=== PATIENT | female | born 1945 | race Caucasian/White ===

== ENCOUNTER 2018-10-14 11:51 | Inpatient (IN) | payer BC, MEDICARE, OTHER ==
[2018-10-14 14:47] LABS: ADD MAN DIFF? NO
[2018-10-14 14:49] LABS: WHITE BLOOD COUNT 5.5 10^3/ul (4.8-10.8)
[2018-10-14 14:49] LABS: ABNORMAL IP MESSAGE 1; BASOPHILS % 0.5 % (0.0-2.0); HEMATOCRIT 19.9 % (37.0-47.0); LYMPHOCYTES # 1.1 10^3/ul (0.8-2.9); LYMPHOCYTES % 19.5 % (15.0-51.0); MEAN CORPUSCULAR HEMOGLOBIN 18.1 pg (29.0-33.0); MEAN CORPUSCULAR HGB CONC 27.1 g/dl (32.0-37.0); MEAN CORPUSCULAR VOLUME 66.8 fl (82.0-101.0); MEAN PLATELET VOLUME 9.3 fl (7.4-10.4); MONOCYTE # 0.3 10^3/ul (0.3-0.9); MONOCYTES % 4.9 % (0.0-11.0); NEUTROPHIL # 4.1 10^3/ul (1.6-7.5); NEUTROPHILS % 74.4 % (39.0-77.0); PLATELET COUNT 275 10^3/UL (140-415); POSITIVE DIFF @See below; RED BLOOD COUNT 2.98 10^6/ul (4.20-5.40); RED CELL DISTRIBUTION WIDTH 19.9 % (11.5-14.5)
[2018-10-14 14:53] LABS: HEMOGLOBIN 5.4 g/dl (12.0-16.0); PATH REVIEW? YES
[2018-10-14 15:10] LABS: ALANINE AMINOTRANSFERASE 23 IU/L (13-69); ALBUMIN 3.9 g/dl (3.3-4.9); ALBUMIN/GLOBULIN RATIO 1.56; ALKALINE PHOSPHATASE 56 IU/L (42-121); ANION GAP 14 (5-13); ASPARTATE AMINO TRANSFERASE 24 IU/L (15-46); BILIRUBIN,INDIRECT 0.5 mg/dl (0-1.1); BILIRUBIN,TOTAL 0.5 mg/dl (0.2-1.3); BLOOD UREA NITROGEN 23 mg/dl (7-20); CALCIUM 9.6 mg/dl (8.4-10.2); CARBON DIOXIDE 22 mmol/L (21-31); CHLORIDE 102 mmol/L (97-110); CREATININE 1.08 mg/dl (0.44-1.00); GLUCOSE 151 mg/dl (70-220); POTASSIUM 4.4 mmol/L (3.5-5.1); SODIUM 138 mmol/L (135-144); TOTAL PROTEIN 6.4 g/dl (6.1-8.1)
[2018-10-14 15:17] LABS: B-TYPE NATRIURETIC PEPTIDE 1300 PG/ML (0-125)
[2018-10-14 16:00] LABS: FERRITIN 5.1 ng/ml (11.1-264.0)
[2018-10-14 16:15] LABS: IRON 23 ug/dl (35-150)
[2018-10-14 16:24] LABS: % IRON SATURATION 5 % SAT (22-52); TOTAL IRON BINDING CAPACITY 481 ug/dl (241-421)
[2018-10-14 17:56] LABS: ADD UMIC YES; UR ASCORBIC ACID 20 mg/dL (NEGATIVE); UR BACTERIA FEW /HPF (NONE SEEN); UR BILIRUBIN (Dip) NEGATIVE (NEGATIVE); UR BLOOD (Dip) NEGATIVE (NEGATIVE); UR CLARITY CLEAR (CLEAR); UR COLOR AMBER (YELLOW); UR GLUCOSE (Dip) NEGATIVE (NEGATIVE); UR KETONES (Dip) NEGATIVE (NEGATIVE); UR LEUKOCYTE ESTERASE (Dip) TRACE Leu/ul (NEGATIVE); UR MUCUS FEW /HPF (NONE SEEN); UR NITRITE (Dip) NEGATIVE (NEGATIVE); UR RBC 1 /HPF (0-5); UR SPECIFIC GRAVITY (Dip) 1.028 (1.003-1.030); UR SQUAMOUS EPITHELIAL CELL FEW /HPF (FEW); UR TOTAL PROTEIN (Dip) 1+ mg/dl (NEGATIVE); UR UROBILINOGEN (Dip) 1+ mg/dL (NEGATIVE); UR WBC 11 /HPF (0-5)
[2018-10-14] MEDS ORDERED: NACL 0.9% 3 ML SYG IV (18:00)
[2018-10-14] MEDS ORDERED: NABUMETONE 500 MG TAB PO (18:00)
[2018-10-14] MEDS ORDERED: ACETAMINOPHEN 325 MG TAB PO (18:00)
[2018-10-14] MEDS ORDERED: MAGNESIUM HYDROXIDE 30ML CUP PO (18:00)
[2018-10-14] MEDS ORDERED: ONDANSETRON 4 MG TAB PO (18:00)
[2018-10-14] MEDS: INSULIN ASPART [NOVOLOG] 3 ML PEN SC ×2 (18:00→21:00)
[2018-10-14] MEDS ORDERED: ZOLPIDEM 5 MG TAB PO (18:00)
[2018-10-14] MEDS: metFORMIN (XR) 500 MG TAB PO (18:04)
[2018-10-14 18:13] LABS: ANISOCYTOSIS 3+ (0-0); BAND NEUTROPHILS #M 0.1 10^3/ul (0.0-0.6); BAND NEUTROPHILS % (M) 3 % (0-4); BASOPHILS % (M) 1 % (0-2); EOSINOPHILS % (M) 6 % (0-7); HYPOCHROMASIA 2+ (0-0); LYMPHOCYTES #M 0.7 10^3/ul (0.8-2.9); LYMPHOCYTES % (M) 13 % (15-51); MICROCYTOSIS 3+ (0-0); MONOCYTE #M 0.3 10^3/ul (0.3-0.9); MONOCYTES % (M) 7 % (0-11); OVALOCYTES 1+ (0-0); PLATELET ESTIMATE NORMAL; POIKILOCYTOSIS 1+ (0-0); POLYCHROMASIA 2+ (0-0); SEG NEUT #M 3.9 10^3/ul (1.6-7.5); SEGMENTED NEUTROPHILS (M) % 70 % (39-77); SMUDGE%M 1 % (0-0)
[2018-10-14] MEDS ORDERED: DEXTROSE 50% 50 ML SYRINGE IV ×2 (19:00)
[2018-10-14] MEDS ORDERED: GLUCOSE GEL 15 GRAM TUBE BUCCAL (19:00)
[2018-10-14] MEDS ORDERED: GLUCAGON 1 MG INJ IM (19:00)
[2018-10-14] MEDS ORDERED: GLUCOSE GEL 15 GRAM TUBE PO ×2 (19:00)
[2018-10-14] MEDS: ACCU-CHEK XX ×2 (20:00→21:00)
[2018-10-14] MEDS: SOD FERRIC GLUC COMPLX 125 MG in SOD CHLORIDE 0.9% 100 ML IVPB (20:41)
[2018-10-14] MEDS: RANOLAZINE (SR) 500 MG TAB PO (22:21)
[2018-10-14] MEDS: ISOSORBIDE MONONITRATE(SR)60 MG TAB PO (22:22)
[2018-10-14] MEDS: METOPROLOL 100 MG TAB PO (22:23)
[2018-10-14] MEDS: ATORVASTATIN 10 MG TAB PO (22:28)
[2018-10-15] MEDS: ACCU-CHEK XX ×8 (01:16→21:09)
[2018-10-15 05:39] LABS: ADD MAN DIFF? NO
[2018-10-15 05:43] LABS: ABNORMAL IP MESSAGE 1; BASOPHILS % 0.9 % (0.0-2.0); HEMATOCRIT 23.3 % (37.0-47.0); LYMPHOCYTES # 1.1 10^3/ul (0.8-2.9); LYMPHOCYTES % 23.6 % (15.0-51.0); MEAN CORPUSCULAR HEMOGLOBIN 20.8 pg (29.0-33.0); MEAN CORPUSCULAR HGB CONC 29.2 g/dl (32.0-37.0); MEAN CORPUSCULAR VOLUME 71.3 fl (82.0-101.0); MEAN PLATELET VOLUME 9.6 fl (7.4-10.4); MONOCYTE # 0.3 10^3/ul (0.3-0.9); MONOCYTES % 6.4 % (0.0-11.0); NEUTROPHIL # 3.2 10^3/ul (1.6-7.5); NEUTROPHILS % 68.7 % (39.0-77.0); NUCLEATED RED BLOOD CELLS% 0.6 /100WBC (0.0-0.0); PLATELET COUNT 245 10^3/UL (140-415); RED BLOOD COUNT 3.27 10^6/ul (4.20-5.40); RED CELL DISTRIBUTION WIDTH 21.3 % (11.5-14.5)
[2018-10-15 05:43] LABS: WHITE BLOOD COUNT 4.7 10^3/ul (4.8-10.8)
[2018-10-15 06:06] LABS: CHOLESTEROL 84 mg/dl (100-200)
[2018-10-15 06:06] LABS: CHOL/HDL RATIO 2.8 RATIO; HDL CHOLESTEROL 29 mg/dl (33-92); LDL CHOLESTEROL,CALCULATED 24 mg/dl; TRIGLYCERIDES 157 mg/dl (0-149)
[2018-10-15 06:11] LABS: HEMOGLOBIN A1C 7.3 % (0-5.9)
[2018-10-15 06:28] LABS: ANION GAP 7 (5-13); BLOOD UREA NITROGEN 22 mg/dl (7-20); CALCIUM 9.5 mg/dl (8.4-10.2); CARBON DIOXIDE 25 mmol/L (21-31); CHLORIDE 104 mmol/L (97-110); CREATININE 1.14 mg/dl (0.44-1.00); GLUCOSE 85 mg/dl (70-220); MAGNESIUM 1.9 mg/dl (1.7-2.5); POTASSIUM 4.2 mmol/L (3.5-5.1); SODIUM 136 mmol/L (135-144); URIC ACID 4.4 mg/dl (3.1-7.9)
[2018-10-15 06:39] LABS: HEMOGLOBIN 6.8 g/dl (12.0-16.0); POSITIVE DIFF @See below
[2018-10-15] MEDS: PANTOPRAZOLE 40 MG INJ IV (06:49)
[2018-10-15] MEDS: REPAGLINIDE 1 MG TAB PO ×3 (07:00→17:14)
[2018-10-15] MEDS: LEVOTHYROXINE 50 MCG TAB PO (07:00)
[2018-10-15] MEDS: LACTATED RINGER'S 1,000 ML IV (07:30)
[2018-10-15] MEDS: metFORMIN (XR) 500 MG TAB PO ×2 (08:00→18:37)
[2018-10-15 08:04] LABS: IMMEDIATE SPIN CROSSMATCH 1 3
[2018-10-15] MEDS: INSULIN ASPART [NOVOLOG] 3 ML PEN SC ×4 (08:18→21:00)
[2018-10-15] MEDS: LOSARTAN 50 MG TAB PO (09:00)
[2018-10-15] MEDS: ALLOPURINOL 300 MG TAB PO (09:00)
[2018-10-15] MEDS: CHLORTHALIDONE 25 MG TAB PO (09:00)
[2018-10-15] MEDS: RANOLAZINE (SR) 500 MG TAB PO ×2 (09:00→20:58)
[2018-10-15] MEDS: ISOSORBIDE MONONITRATE(SR)60 MG TAB PO ×2 (09:00→20:59)
[2018-10-15] MEDS: METOPROLOL 100 MG TAB PO ×2 (09:00→20:59)
[2018-10-15] MEDS: INSULIN GLARGINE [LANTus] (100 UNITS/ML) SYG SC (09:12)
[2018-10-15 11:32] LABS: TRANSFERRIN 387 mg/dL (188-341)
[2018-10-15] MEDS: ETOMIDATE 20 MG INJ (12:25)
[2018-10-15] MEDS: PROPOFOL 20 ML (12:25)
[2018-10-15] MEDS: LIDOCAINE 100 MG SYRINGE (12:37)
[2018-10-15] MEDS ORDERED: ONDANSETRON 4 MG INJ (13:19)
[2018-10-15] MEDS: ONDANSETRON 4 MG INJ IV (13:23)
[2018-10-15] MEDS: SUCRALFATE 1 GM TAB PO ×2 (17:03→21:00)
[2018-10-15] MEDS: SOD FERRIC GLUC COMPLX 125 MG in SOD CHLORIDE 0.9% 100 ML IVPB (17:21)
[2018-10-15] MEDS: FERROUS FUMARATE (SR) TAB PO (20:57)
[2018-10-15] MEDS: ATORVASTATIN 10 MG TAB PO (20:58)
[2018-10-15] MEDS: ASCORBIC ACID 500 MG TAB PO (20:58)
[2018-10-16] MEDS: ACCU-CHEK XX ×8 (02:00→21:00)
[2018-10-16 06:01] LABS: ABNORMAL IP MESSAGE 1; HEMATOCRIT 28.5 % (37.0-47.0); HEMOGLOBIN 8.4 g/dl (12.0-16.0); MEAN CORPUSCULAR HGB CONC 29.5 g/dl (32.0-37.0); MEAN CORPUSCULAR VOLUME 74.6 fl (82.0-101.0); MEAN PLATELET VOLUME 9.6 fl (7.4-10.4); NUCLEATED RED BLOOD CELLS% 0.6 /100WBC (0.0-0.0); PLATELET COUNT 270 10^3/UL (140-415); RED BLOOD COUNT 3.82 10^6/ul (4.20-5.40); RED CELL DISTRIBUTION WIDTH 23.1 % (11.5-14.5)
[2018-10-16 06:19] LABS: POSITIVE DIFF @See below
[2018-10-16 06:21] LABS: ADD MAN DIFF? NO
[2018-10-16 06:26] LABS: ANION GAP 8 (5-13); BLOOD UREA NITROGEN 19 mg/dl (7-20); CALCIUM 9.7 mg/dl (8.4-10.2); CARBON DIOXIDE 27 mmol/L (21-31); CHLORIDE 107 mmol/L (97-110); CREATININE 1.06 mg/dl (0.44-1.00); GLUCOSE 106 mg/dl (70-220); POTASSIUM 4.3 mmol/L (3.5-5.1); SODIUM 142 mmol/L (135-144)
[2018-10-16] MEDS: PANTOPRAZOLE 40 MG INJ IV (06:58)
[2018-10-16] MEDS: LEVOTHYROXINE 50 MCG TAB PO (06:58)
[2018-10-16] MEDS: INSULIN ASPART [NOVOLOG] 3 ML PEN SC ×4 (08:00→21:00)
[2018-10-16] MEDS: REPAGLINIDE 1 MG TAB PO ×3 (08:28→17:33)
[2018-10-16] MEDS: metFORMIN (XR) 500 MG TAB PO ×2 (08:29→17:36)
[2018-10-16] MEDS: CHLORTHALIDONE 25 MG TAB PO (08:30)
[2018-10-16] MEDS: RANOLAZINE (SR) 500 MG TAB PO ×2 (08:31→20:57)
[2018-10-16] MEDS: ISOSORBIDE MONONITRATE(SR)60 MG TAB PO ×2 (08:31→21:07)
[2018-10-16] MEDS: LOSARTAN 50 MG TAB PO (08:31)
[2018-10-16] MEDS: ASCORBIC ACID 500 MG TAB PO ×2 (08:31→20:57)
[2018-10-16] MEDS: FERROUS FUMARATE (SR) TAB PO ×2 (08:32→20:57)
[2018-10-16] MEDS: SUCRALFATE 1 GM TAB PO ×4 (08:32→20:57)
[2018-10-16] MEDS: ALLOPURINOL 300 MG TAB PO (08:32)
[2018-10-16] MEDS: METOPROLOL 100 MG TAB PO ×2 (08:32→21:07)
[2018-10-16] MEDS: INSULIN GLARGINE [LANTus] (100 UNITS/ML) SYG SC (11:00)
[2018-10-16] MEDS: SOD FERRIC GLUC COMPLX 125 MG in SOD CHLORIDE 0.9% 100 ML IVPB (17:33)
[2018-10-16] MEDS: ATORVASTATIN 10 MG TAB PO (20:56)
[2018-10-17] MEDS: ACCU-CHEK XX ×6 (02:00→21:00)
[2018-10-17] MEDS: PANTOPRAZOLE 40 MG INJ IV (05:41)
[2018-10-17] MEDS: LEVOTHYROXINE 50 MCG TAB PO (05:41)
[2018-10-17 05:49] LABS: ADD MAN DIFF? NO
[2018-10-17 05:56] LABS: WHITE BLOOD COUNT 5.4 10^3/ul (4.8-10.8)
[2018-10-17 05:56] LABS: ABNORMAL IP MESSAGE 1; BASOPHILS % 0.7 % (0.0-2.0); HEMOGLOBIN 8.7 g/dl (12.0-16.0); LYMPHOCYTES # 1.3 10^3/ul (0.8-2.9); LYMPHOCYTES % 23.1 % (15.0-51.0); MEAN CORPUSCULAR HEMOGLOBIN 21.9 pg (29.0-33.0); MEAN CORPUSCULAR VOLUME 75.6 fl (82.0-101.0); MEAN PLATELET VOLUME 9.5 fl (7.4-10.4); MONOCYTE # 0.4 10^3/ul (0.3-0.9); NEUTROPHIL # 3.7 10^3/ul (1.6-7.5); NEUTROPHILS % 67.7 % (39.0-77.0); NUCLEATED RED BLOOD CELLS # 0.1 10^3/ul (0.0-0.0); NUCLEATED RED BLOOD CELLS% 0.9 /100WBC (0.0-0.0); PLATELET COUNT 245 10^3/UL (140-415); RED BLOOD COUNT 3.97 10^6/ul (4.20-5.40); RED CELL DISTRIBUTION WIDTH 23.9 % (11.5-14.5)
[2018-10-17 06:08] LABS: POSITIVE DIFF @See below
[2018-10-17] MEDS: metFORMIN (XR) 500 MG TAB PO ×2 (08:00→17:30)
[2018-10-17] MEDS: RANOLAZINE (SR) 500 MG TAB PO ×2 (08:37→21:52)
[2018-10-17] MEDS: FERROUS FUMARATE (SR) TAB PO ×2 (08:37→21:52)
[2018-10-17] MEDS: REPAGLINIDE 1 MG TAB PO ×3 (08:37→17:31)
[2018-10-17] MEDS: SUCRALFATE 1 GM TAB PO ×4 (08:37→21:56)
[2018-10-17] MEDS: CHLORTHALIDONE 25 MG TAB PO (08:38)
[2018-10-17] MEDS: ISOSORBIDE MONONITRATE(SR)60 MG TAB PO ×2 (08:38→21:53)
[2018-10-17] MEDS: ALLOPURINOL 300 MG TAB PO (08:39)
[2018-10-17] MEDS: LOSARTAN 50 MG TAB PO (08:39)
[2018-10-17] MEDS: ASCORBIC ACID 500 MG TAB PO ×2 (08:39→21:53)
[2018-10-17] MEDS: METOPROLOL 100 MG TAB PO ×2 (08:39→21:53)
[2018-10-17] MEDS: INSULIN GLARGINE [LANTus] (100 UNITS/ML) SYG SC (08:49)
[2018-10-17] MEDS: INSULIN ASPART [NOVOLOG] 3 ML PEN SC ×4 (08:50→21:00)
[2018-10-17] MEDS: SOD FERRIC GLUC COMPLX 125 MG in SOD CHLORIDE 0.9% 100 ML IVPB (17:31)
[2018-10-17] MEDS: ATORVASTATIN 10 MG TAB PO (21:52)
[2018-10-18] MEDS: ACCU-CHEK XX ×5 (02:00→20:30)
[2018-10-18] MEDS: PANTOPRAZOLE 40 MG INJ IV (06:12)
[2018-10-18] MEDS: LEVOTHYROXINE 50 MCG TAB PO (06:12)
[2018-10-18] MEDS: INSULIN ASPART [NOVOLOG] 3 ML PEN SC ×4 (08:00→20:29)
[2018-10-18] MEDS: REPAGLINIDE 1 MG TAB PO ×3 (08:09→17:31)
[2018-10-18] MEDS: ISOSORBIDE MONONITRATE(SR)60 MG TAB PO ×2 (08:09→21:26)
[2018-10-18] MEDS: FERROUS FUMARATE (SR) TAB PO ×2 (08:10→21:25)
[2018-10-18] MEDS: ASCORBIC ACID 500 MG TAB PO ×2 (08:10→21:27)
[2018-10-18] MEDS: ALLOPURINOL 300 MG TAB PO (08:10)
[2018-10-18] MEDS: RANOLAZINE (SR) 500 MG TAB PO ×2 (08:10→21:27)
[2018-10-18] MEDS: METOPROLOL 100 MG TAB PO ×2 (08:10→21:26)
[2018-10-18] MEDS: LOSARTAN 50 MG TAB PO (08:10)
[2018-10-18] MEDS: CHLORTHALIDONE 25 MG TAB PO (08:10)
[2018-10-18] MEDS: SUCRALFATE 1 GM TAB PO ×4 (08:10→21:25)
[2018-10-18] MEDS: INSULIN GLARGINE [LANTus] (100 UNITS/ML) SYG SC (08:15)
[2018-10-18] MEDS: metFORMIN (XR) 500 MG TAB PO ×2 (08:15→17:31)
[2018-10-18] MEDS: SOD FERRIC GLUC COMPLX 125 MG in SOD CHLORIDE 0.9% 100 ML IVPB (17:31)
[2018-10-18] MEDS: ATORVASTATIN 10 MG TAB PO (21:27)
[2018-10-18] MEDS ORDERED: DEXTROSE 5%-0.45% NACL 500 ML IV ×2 (23:00)
[2018-10-18] MEDS: DEXTROSE 5%-0.45% NACL 1,000 ML IV (23:24)
[2018-10-19] MEDS: ACCU-CHEK XX ×5 (02:45→20:58)
[2018-10-19] MEDS: PANTOPRAZOLE 40 MG INJ IV (05:14)
[2018-10-19] MEDS: REPAGLINIDE 1 MG TAB PO ×3 (05:14→18:32)
[2018-10-19 05:53] LABS: ADD MAN DIFF? NO
[2018-10-19 05:56] LABS: ABNORMAL IP MESSAGE 1; BASOPHIL # 0.1 10^3/ul (0.0-0.1); HEMATOCRIT 34.2 % (37.0-47.0); HEMOGLOBIN 10.2 g/dl (12.0-16.0); LYMPHOCYTES # 1.3 10^3/ul (0.8-2.9); LYMPHOCYTES % 23.1 % (15.0-51.0); MEAN CORPUSCULAR HEMOGLOBIN 22.6 pg (29.0-33.0); MEAN CORPUSCULAR HGB CONC 29.8 g/dl (32.0-37.0); MEAN CORPUSCULAR VOLUME 75.7 fl (82.0-101.0); MEAN PLATELET VOLUME 9.8 fl (7.4-10.4); MONOCYTE # 0.4 10^3/ul (0.3-0.9); MONOCYTES % 6.9 % (0.0-11.0); NEUTROPHIL # 3.9 10^3/ul (1.6-7.5); NEUTROPHILS % 67.4 % (39.0-77.0); PLATELET COUNT 235 10^3/UL (140-415); RED BLOOD COUNT 4.52 10^6/ul (4.20-5.40); RED CELL DISTRIBUTION WIDTH 26.5 % (11.5-14.5)
[2018-10-19 05:56] LABS: WHITE BLOOD COUNT 5.8 10^3/ul (4.8-10.8)
[2018-10-19 06:34] LABS: POSITIVE DIFF @See below
[2018-10-19] MEDS: LEVOTHYROXINE 50 MCG TAB PO (06:57)
[2018-10-19] MEDS: metFORMIN (XR) 500 MG TAB PO ×2 (08:00→18:32)
[2018-10-19] MEDS: INSULIN ASPART [NOVOLOG] 3 ML PEN SC ×4 (08:00→20:58)
[2018-10-19] MEDS: ISOSORBIDE MONONITRATE(SR)60 MG TAB PO ×3 (09:00→21:00)
[2018-10-19] MEDS: RANOLAZINE (SR) 500 MG TAB PO ×3 (09:00→21:00)
[2018-10-19] MEDS: INSULIN GLARGINE [LANTus] (100 UNITS/ML) SYG SC ×2 (09:00→10:58)
[2018-10-19] MEDS: FERROUS FUMARATE (SR) TAB PO ×3 (09:00→21:00)
[2018-10-19] MEDS: LOSARTAN 50 MG TAB PO ×2 (09:00→18:34)
[2018-10-19] MEDS: ASCORBIC ACID 500 MG TAB PO ×3 (09:00→21:00)
[2018-10-19] MEDS: SUCRALFATE 1 GM TAB PO ×5 (09:00→21:00)
[2018-10-19] MEDS: METOPROLOL 100 MG TAB PO ×2 (09:00→21:00)
[2018-10-19] MEDS ORDERED: PROPOFOL 40 ML (16:33)
[2018-10-19] MEDS ORDERED: EPINEPHrine 0.1 MG/ML SYG (17:37)
[2018-10-19] MEDS: ALLOPURINOL 300 MG TAB PO (18:33)
[2018-10-19] MEDS: CHLORTHALIDONE 25 MG TAB PO (18:33)
[2018-10-19] MEDS: SOD FERRIC GLUC COMPLX 125 MG in SOD CHLORIDE 0.9% 100 ML IVPB (18:50)
[2018-10-19] MEDS: ATORVASTATIN 10 MG TAB PO (20:57)
[2018-10-20] MEDS: ACCU-CHEK XX ×3 (02:00→12:01)
[2018-10-20 05:49] LABS: ADD MAN DIFF? NO
[2018-10-20 05:55] LABS: WHITE BLOOD COUNT 5.2 10^3/ul (4.8-10.8)
[2018-10-20 05:55] LABS: ABNORMAL IP MESSAGE 1; BASOPHIL # 0.1 10^3/ul (0.0-0.1); BASOPHILS % 1.1 % (0.0-2.0); HEMATOCRIT 34.3 % (37.0-47.0); HEMOGLOBIN 10.3 g/dl (12.0-16.0); LYMPHOCYTES # 1.1 10^3/ul (0.8-2.9); LYMPHOCYTES % 20.1 % (15.0-51.0); MEAN CORPUSCULAR HEMOGLOBIN 22.9 pg (29.0-33.0); MEAN CORPUSCULAR VOLUME 76.4 fl (82.0-101.0); MEAN PLATELET VOLUME 9.8 fl (7.4-10.4); MONOCYTE # 0.5 10^3/ul (0.3-0.9); MONOCYTES % 9.2 % (0.0-11.0); NEUTROPHIL # 3.6 10^3/ul (1.6-7.5); NEUTROPHILS % 68.6 % (39.0-77.0); PLATELET COUNT 218 10^3/UL (140-415); RED BLOOD COUNT 4.49 10^6/ul (4.20-5.40)
[2018-10-20] MEDS: LEVOTHYROXINE 50 MCG TAB PO (06:12)
[2018-10-20] MEDS: PANTOPRAZOLE 40 MG INJ IV (06:12)
[2018-10-20 06:20] LABS: POSITIVE DIFF @See below
[2018-10-20] MEDS: metFORMIN (XR) 500 MG TAB PO (08:00)
[2018-10-20] MEDS: INSULIN ASPART [NOVOLOG] 3 ML PEN SC ×2 (08:11→12:00)
[2018-10-20] MEDS: METOPROLOL 100 MG TAB PO (08:28)
[2018-10-20] MEDS: CHLORTHALIDONE 25 MG TAB PO (08:29)
[2018-10-20] MEDS: RANOLAZINE (SR) 500 MG TAB PO (08:29)
[2018-10-20] MEDS: REPAGLINIDE 1 MG TAB PO ×2 (08:29→11:30)
[2018-10-20] MEDS: SUCRALFATE 1 GM TAB PO ×2 (08:29→13:00)
[2018-10-20] MEDS: ISOSORBIDE MONONITRATE(SR)60 MG TAB PO (08:29)
[2018-10-20] MEDS: ALLOPURINOL 300 MG TAB PO (08:29)
[2018-10-20] MEDS: FERROUS FUMARATE (SR) TAB PO (08:29)
[2018-10-20] MEDS: ASCORBIC ACID 500 MG TAB PO (08:29)
[2018-10-20] MEDS: LOSARTAN 50 MG TAB PO (08:29)
[2018-10-20] MEDS: INSULIN GLARGINE [LANTus] (100 UNITS/ML) SYG SC (08:34)
[2018-10-20] MEDS: IOHEXOL 14.3 MG(I)/ML (ADULT) BTL PO (11:58)
[2018-10-20] MEDS: IODIXANOL LOCM 100 ML BTL (14:31)
[2018-10-20] MEDS: SOD CHLORIDE 0.9% 100 ML (14:31)
== END 2018-10-20 16:10 | disposition home or self-care (01) | DRG 812 ==
LOC: E/R 11:51 → 2NE 10-18 22:28 → 6WM 16:19
PROC: 0DB68ZX Excision of Stomach, Via Natural or Artificial Opening Endoscopic, Diagnostic (ICD-10-PCS; principal; 2018-10-15 11:50)
PROC: 30233N1 Transfusion of Nonautologous Red Blood Cells into Peripheral Vein, Percutaneous Approach (ICD-10-PCS; 2018-10-15 11:50)
PROC: 0DB68ZZ Excision of Stomach, Via Natural or Artificial Opening Endoscopic (ICD-10-PCS; 2018-10-15 11:50)
DX: D50.0 Iron deficiency anemia secondary to blood loss (chronic) (principal); C7A.8 Other malignant neuroendocrine tumors; I25.110 Atherosclerotic heart disease of native coronary artery with unstable angina pectoris; K31.7 Polyp of stomach and duodenum; E11.9 Type 2 diabetes mellitus without complications; I10 Essential (primary) hypertension; G89.4 Chronic pain syndrome; E78.5 Hyperlipidemia, unspecified; M19.90 Unspecified osteoarthritis, unspecified site; E03.9 Hypothyroidism, unspecified; M43.22 Fusion of spine, cervical region; K44.9 Diaphragmatic hernia without obstruction or gangrene; Z79.02 Long term (current) use of antithrombotics/antiplatelets; M1A.09X0 Idiopathic chronic gout, multiple sites, without tophus (tophi); K21.9 Gastro-esophageal reflux disease without esophagitis; Z79.1 Long term (current) use of non-steroidal anti-inflammatories (NSAID)
CPT/HCPCS: 36415; 36430; 71045; 74177; 80048; 80053; 80061; 81001; 82728; 82962; 83036; 83540; 83735; 83880; 84443; 84466; 84560; 85025; 86850; 86900; 86901; 86920; 88305; 88312; 88313; 93005; 99285-25